=== PATIENT | female | born 1985 | race Two or more races ===

== ENCOUNTER 2019-01-14 12:33 | Outpatient (CLI) | payer OTHER | END 2019-01-14 13:00 | disposition home or self-care (01) | LOC: NUCLEAR 12:33 | DX: R07.89 Other chest pain (principal) ==

== ENCOUNTER → 2019-02-15 | Outpatient (CLI) | payer OTHER | END | disposition home or self-care (01) | LOC: NUCLEAR 07:00 | DX: R07.89 Other chest pain (principal) | CPT/HCPCS: 78452; 93017; A9500 ==

== ENCOUNTER 2024-06-04 07:14 | Outpatient (CLI) | payer OTHER | END 2024-06-04 07:15 | disposition home or self-care (01) | LOC: NUCLEAR 07:14 | PROVIDERS: ATTEND Internal Medicine Sports Medicine | DX: E05.90 Thyrotoxicosis, unspecified without thyrotoxic crisis or storm (principal); E04.1 Nontoxic single thyroid nodule ==

== ENCOUNTER → 2024-06-05 | Outpatient (CLI) | payer OTHER | END | disposition home or self-care (01) | LOC: NUCLEAR 07:00 | PROVIDERS: ATTEND Internal Medicine Sports Medicine | DX: E05.90 Thyrotoxicosis, unspecified without thyrotoxic crisis or storm (principal); E04.1 Nontoxic single thyroid nodule ==

== ENCOUNTER 2024-12-25 07:17 | Outpatient (CLI) | payer OTHER | END 2024-12-25 07:18 | disposition home or self-care (01) | LOC: NUCLEAR 07:17 | PROVIDERS: ATTEND Internal Medicine Sports Medicine | DX: E03.9 Hypothyroidism, unspecified (principal) ==

== ENCOUNTER 2025-01-13 10:40 | Outpatient (CLI) | payer OTHER | END 2025-01-13 10:41 | disposition home or self-care (01) | LOC: NUCLEAR 10:40 | PROVIDERS: ATTEND Internal Medicine Sports Medicine | DX: E05.90 Thyrotoxicosis, unspecified without thyrotoxic crisis or storm (principal) ==